=== PATIENT | male | born 1985 | race Caucasian/White ===

== ENCOUNTER 2016-04-11 | Emergency (ER) | payer MEDICAID | END 2016-04-11 17:36 | disposition left against medical advice (07) | DX: Z53.21 Procedure and treatment not carried out due to patient leaving prior to being seen by health care provider (principal) ==

== ENCOUNTER 2016-04-12 09:26 | Emergency (ER) | payer MEDICAID ==
[2016-04-12] MEDS ORDERED: LIDOCAINE-MPF 1% 5 ML VIAL ONE (11:54)
== END 2016-04-12 13:03 | disposition home or self-care (01) ==
DX: L02.416 Cutaneous abscess of left lower limb (principal); F19.90 Other psychoactive substance use, unspecified, uncomplicated; F17.200 Nicotine dependence, unspecified, uncomplicated